=== PATIENT | male | born 1945 | race Caucasian/White ===

== ENCOUNTER 2016-10-18 14:51 | Emergency (ER) | payer OTHER ==
[~2016-10-18] VITALS: Ht 175.3 cm; Wt 83.9 kg
--- NOTE | ~2016-10-18 | EKG ---
[place] [address] [facility] [employer] [place] [address] ELECTROCARDIOGRAM REPORT Name: NORY HENDERSON [id number] Admission: 10/18/16 Attend Phys: Discharge: 10/18/16 Date of : 47 Report #: [id number] THIS REPORT FOR: //name// [facility] ED Test Date: 2016-10-18 Test Time: 15:41:24 Pat Name: NORY HENDERSON Department: Room: Gender: M Night Filler: Hernandez LO : 1945 Requested By: Joe García Order Number: [id number] MD: Josias Gamble Measurements Intervals [place] Rate: 80 P: 0 NM: 24 QRS: 198 QRSD: 143 T: 95 QT: 528 QTc: 610 Interpretive Statements Ventricular-paced rhythm No further analysis attempted due to paced rhythm No previous ECG available for comparison Electronically Signed On 10-19-2016 9:03:49 NON PROFIT JOB TITLES by Josias Gamble [email or web address] <ELECTRONICALLY SIGNED> By: Josias Gamble MD, [facility] 10/19/16 0903 1541 1541 Josias Gamble MD, FACC /EPI
[~2016-10-18 14:51] MED LIST: ACETAMINOPHEN325 M1 PO; ALDACTONE25 MG PO; ANTACID650 MG PO; ATORVASTATIN CA40 MG PO; BACTROBAN CREAM30 G1; BISACODYL SUPP10 MG RECTAL; CALCITRIOL0.25 MCG PO; CALCIUM ACETAT667 MG PO; CARDIZEM CD180 MG PO; CARRAKLENZ DER473 ML; CLONAZEPAM 0.50.5 M1 PO; COLACE100 MG PO; COMBIVENT INH; COUMADIN 2.5MG2.5 M1 PO; DEMADEX20 MG PO; DIGOXIN250 MCG PO; FOLIC ACID1 MG PO; GENTAMICIN 0.1%15 G2 TOP; IRON325 PO; KEFLEX500 MG PO; LANOXIN 0.120.125 M1 PO; LANTUS SUBQ; LANTUS100 UNIT/M SUBQ; LASIX 20 MG TAB20 MG PO; LASIX 40 MG TAB40 M2 PO; LISINOPRIL10 MG PO; LOPRESSOR50 PO; MIRALAX17 GM PO; MULTIVITAMIN PO; NEPHRO-VITE TA0.8 MG PO; NORVASC10 MG PO; NOVOLIN R100 UNIT/1 SUBQ; NOVOLOG100 UNIT/1 SQ; OMEPRAZOLE 20 M20 M1 PO; PAROXETINE HCL40 MG; PAROXETINE HCL40 MG PO; PAXIL40 MG PO; RENAL MULTIVITAMIN PO; TOPROL XL200 MG PO; TYLENOL325 MG PO; VITAMIN D31000 UNI2 PO; VITAMINC500 PO; ZOCOR 20 MG TAB20 M1 PO; ZOCOR40 MG PO; [UNRECOGNIZED DRUG - OTHER] PO
[2016-10-18 15:44] LABS: HEMATOCRIT 34.1 % (42.0-52.0); HEMOGLOBIN 11.6 gm/dL (14.0-18.0); MCH 31.9 pg (26.0-34.0); MCV 93.8 fL (80.0-100.0); PLATELET COUNT 125 thou/uL (150-400); RBC 3.64 mil/uL (4.50-6.00); WBC 6.9 thou/uL (4.0-11.0)
[2016-10-18 15:45] LABS: MANUAL DIFF YES
[2016-10-18 15:55] LABS: ANION GAP 13 mmol/L (7-16); BUN 79 mg/dL (7-18); CALCIUM 8.8 mg/dL (8.5-10.1); CHLORIDE 96 mmol/L (98-107); CO2 25 mmol/L (21-32); CREATININE 6.7 mg/dL (0.6-1.3); GLUCOSE 160 mg/dL (70-99); POTASSIUM 4.2 mmol/L (3.5-5.1); SODIUM 134 mmol/L (136-145)
[2016-10-18 16:00] LABS: ALBUMIN 3.6 g/dL (3.4-5.0); ALKALINE PHOSPHATASE 85 U/L (46-116); SGOT 18 U/L (15-37); SGPT 19 U/L (30-65); TOTAL BILIRUBIN 0.5 mg/dL (<0.1-1.0); TOTAL PROTEIN 8.5 g/dL (6.4-8.2); TROPONIN-I < 0.04 ng/mL (<0.04-0.07)
[2016-10-18 16:17] LABS: ANISOCYTOSIS 1+; TOTAL CELL COUNT 100
[2016-10-18 16:18] LABS: HYPOCHROMASIA SLIGHT; POIKILOCYTOSIS SLIGHT; POLYCHROMASIA OCCASIONAL
== END 2016-10-18 18:40 | disposition home or self-care (01) ==
LOC: ER 14:51
PROVIDERS: Physician Assistant
DX: I95.1 Orthostatic hypotension (principal); G47.39 Other sleep apnea; E78.5 Hyperlipidemia, unspecified; F32.9 Major depressive disorder, single episode, unspecified; F41.9 Anxiety disorder, unspecified; F43.10 Post-traumatic stress disorder, unspecified; E11.9 Type 2 diabetes mellitus without complications; M79.1 Myalgia; K21.9 Gastro-esophageal reflux disease without esophagitis; I48.91 Unspecified atrial fibrillation; I12.0 Hypertensive chronic kidney disease with stage 5 chronic kidney disease or end stage renal disease; N18.5 Chronic kidney disease, stage 5; Z99.2 Dependence on renal dialysis; Z88.8 Allergy status to other drugs, medicaments and biological substances; Z88.6 Allergy status to analgesic agent; Z88.1 Allergy status to other antibiotic agents; Z91.14 Patient's other noncompliance with medication regimen; Z90.89 Acquired absence of other organs; Z86.14 Personal history of Methicillin resistant Staphylococcus aureus infection

== ENCOUNTER 2017-03-16 15:45 | Emergency (ER) | payer OTHER ==
[~2017-03-16] VITALS: Ht 182.9 cm; Wt 88.5 kg
[2017-03-16 16:19] LABS: BASOPHILS 0.5 % (0.0-2.0); EOSINOPHILS 1.4 % (0.0-3.0); HEMATOCRIT 25.7 % (42.0-52.0); HEMOGLOBIN 8.8 gm/dL (14.0-18.0); LYMPHOCYTES 16.5 % (24.0-44.0); MCH 32.1 pg (26.0-34.0); MCHC 34.1 g/dL (28.0-37.0); MCV 94.3 fL (80.0-100.0); MONOCYTES 6.3 % (1.0-8.0); PLATELET COUNT 101 thou/uL (150-400); POLYS 75.3 % (36.0-66.0); RBC 2.73 mil/uL (4.50-6.00); RDW 14.3 % (10.5-14.5); WBC 3.9 thou/uL (4.0-11.0)
[2017-03-16 16:21] LABS: MANUAL DIFF NO
[2017-03-16 16:25] LABS: CALCIUM 8.5 mg/dL (8.5-10.1); CREATININE 4.6 mg/dL (0.7-1.3); POTASSIUM 4.5 mmol/L (3.5-5.1)
[2017-03-16 16:41] LABS: URINE BILIRUBIN NEGATIVE (Negative); URINE BLOOD TRACE (Negative); URINE COLOR YELLOW; URINE GLUCOSE-RANDOM* NEGATIVE (Negative); URINE KETONES NEGATIVE (Negative); URINE NITRITE NEGATIVE (Negative); URINE PROTEIN (DIPSTICK) 1+ (Negative); URINE UROBILINOGEN 0.2 E.U./dl (0.2-1.0)
[2017-03-16 17:04] LABS: CASTS None Seen /LPF (None Seen); SQUAMOUS >10 Many /LPF (0-3)
[2017-03-16 17:05] LABS: BACTERIA 1-9 Few /HPF (None Seen); CRYSTALS None Seen /LPF (None Seen); URINE RBC 0-2 Rare /HPF (0-2); URINE WBC 0-5 Rare /HPF (0-5)
== END 2017-03-16 17:52 | disposition home or self-care (01) ==
LOC: ER 15:45
PROVIDERS: Nurse Practitioner
DX: R25.1 Tremor, unspecified (principal); E78.5 Hyperlipidemia, unspecified; G47.30 Sleep apnea, unspecified; F32.9 Major depressive disorder, single episode, unspecified; F41.9 Anxiety disorder, unspecified; F43.10 Post-traumatic stress disorder, unspecified; M10.9 Gout, unspecified; I48.91 Unspecified atrial fibrillation; I12.0 Hypertensive chronic kidney disease with stage 5 chronic kidney disease or end stage renal disease; E11.22 Type 2 diabetes mellitus with diabetic chronic kidney disease; N18.5 Chronic kidney disease, stage 5; Z99.2 Dependence on renal dialysis; Z90.89 Acquired absence of other organs; Z86.14 Personal history of Methicillin resistant Staphylococcus aureus infection; Z79.4 Long term (current) use of insulin; Z88.8 Allergy status to other drugs, medicaments and biological substances

== ENCOUNTER 2019-06-04 11:03 | Inpatient (IN) | payer OTHER ==
[~2019-06-04] VITALS: Ht 182.9 cm; Wt 96.2 kg
[2019-06-04] VITALS (31 sets, daily range): BP systolic 107–155; BP diastolic 55–92
--- NOTE | ~2019-06-04 | HC ---
[facility] [place] [address] CONSULTATION Name: NORY HENDERSON Room #: 243-P ADM IN M.R.#: [id number] Admission: 06/04/19 ������������������ Attend Phys: Manohar Johnson MD Discharge: ������������������ Date of : 46 Report #: [id number] THIS REPORT FOR: //name// CC: Manohar Morgan HISTORY OF PRESENT ILLNESS: This is a 73-year-old gentleman with end-stage renal disease, on dialysis. Apparently, he was weak and he fell injuring his left wrist and hand as well as his knee and was then subsequently admitted through the Emergency Room here. ALLERGIES: Noted on the chart. PAST MEDICAL HISTORY: Significant for tonsillectomy, hypertension, previous left eye surgery, cardiac catheterization x 3, left ankle fracture, sleep apnea, hyperlipidemia, depression, history of MRSA, diabetes, gout, paroxysmal V-tach, AICD, atrial fibrillation with Coumadin, chronic kidney disease and had a history of prior toe amputation. X-rays of the left hand, there is an old chronic healed fracture of the proximal phalanx of the fifth digit as well as question of some cortical changes in the ulna, which I do not actually see. Physical exam has no tenderness over the proximal phalanx of the small finger. He does have tenderness, however, over his distal radius with ecchymosis noted there. IMPRESSION: Left wrist contusion and sprain. Plan will be to have the patient go into a volar wrist splint. His fracture is an old fracture, which is well healed on his proximal phalanx of his small finger. I will follow along with you. Thank you for allowing me to participate in the care of this pleasant patient. ��������������������������������������������� ���������������������������������������� By: ��������������������������������������������� 2041 0522 Pablito Mayberry MD /nt
[2019-06-04 11:30] LABS: ABSOLUTE NEUTROPHILS 4.3 thou/uL (1.4-8.2); BASOPHILS 1.1 % (0.0-2.0); EOSINOPHILS 1.1 % (0.0-3.0); HEMATOCRIT 32.6 % (42.0-52.0); HEMOGLOBIN 10.6 gm/dL (14.0-18.0); LYMPHOCYTES 12.3 % (24.0-44.0); MCH 32.4 pg (26.0-34.0); MCHC 32.5 g/dL (28.0-37.0); MCV 99.7 fL (80.0-100.0); MONOCYTES 6.7 % (1.0-8.0); POLYS 78.8 % (36.0-66.0); RBC 3.27 mil/uL (4.50-6.00); RDW 18.3 % (10.5-14.5); WBC 5.5 thou/uL (4.0-11.0)
[2019-06-04 11:47] LABS: INR 1.6; PROTIME 16.7 Seconds (9.3-11.4)
[2019-06-04 11:48] LABS: ALBUMIN 3.8 g/dL (3.4-5.0); ANION GAP 13 mmol/L (7-16); BUN 126 mg/dL (7-18); CHLORIDE 99 mmol/L (98-107); CO2 20 mmol/L (21-32); CREATININE 12.4 mg/dL (0.7-1.3); GLUCOSE 109 mg/dL (74-106); SGOT 35 U/L (15-37); SGPT 29 U/L (30-65); SODIUM 132 mmol/L (136-145); TOTAL BILIRUBIN 0.4 mg/dL (<0.1-1.0); TOTAL PROTEIN 7.5 g/dL (6.4-8.2); TROPONIN-I <0.06 ng/mL (<0.06)
[2019-06-04 11:50] LABS: ANISOCYTOSIS 1+; PLATELET COUNT 100 thou/uL (150-400); PLATELET ESTIMATE NORMAL
[2019-06-04 11:51] LABS: POTASSIUM 8.1 mmol/L (3.5-5.1)
[2019-06-04] MEDS ORDERED: COUMADIN 2.5MG2.5 M1 PO (12:41)
[2019-06-04] MEDS ORDERED: COUMADIN 5 MG TA5 M1 PO (12:42)
--- NOTE | 2019-06-04 13:20 | NUR ---
VASCULAR ACCESS TEAM CONSULTED FOR PICC LINE. PT IS ON DIALYSIS SO PICC IS CONTRAINDICATED. PT HAS R FISTULA AND LEFT PACEMEAKER SO CVAD IS ALSO CONTRAINDICATED SPOKE WITH MANUEL. RECOMMENDED TICC LINE FOR THIS PT.
--- NOTE | 2019-06-04 18:35 | NUR ---
CONTINUED HYPERKALEMIA MANAGEMENT. RENAL FOLLOWING. RT FEMORAL TEMP DIALYSIS CATHETER PLACED PER DR. LANDIN. EMMA AV FISTULA PATENT AT THIS TIME AND IN USE PER FLAG DECORATOR. VSS, SEE FLOWSHEET. VPACED ON TELEMETRY. DENIES SYMPTOMS OF CHEST PAIN OR SHORTNESS OF BREATH. LEFT WRIST FX WITHOUT IMMOBILIZATION. PVS INTACT. CONSIDER ORTHO INPUT. PATIENT ANURIC. +BM. CONTINUED PROGRESSION TOWARDS CURRENT PLAN OF CARE GOALS. NO ACUTE EVENTS TO REPORT.
--- NOTE | 2019-06-04 21:30 | NUR ---
ASSISTED DR. CARMONA WITH INFUSION OF MEDICATION IN RIGHT CHEST TUBE. CHEST TUBE CLAMP AT 2130. UNCLAMPED AT 2330, NEW ATRIUM ATTACHED TO CHEST TUBE. WILL CONTINUE TO MONITOR PT.
[2019-06-05] VITALS (20 sets, daily range): BP systolic 98–156; BP diastolic 41–79
--- NOTE | 2019-06-05 07:48 | EKG ---
[address] [employer] [place] [address] ELECTROCARDIOGRAM REPORT Name: NORY HENDERSON Room #: 243-P ADM IN M.R.#: [id number] ������������������ Admission: 06/04/19 ������������������ Attend Phys: Manohar Johnson MD Discharge: ������������������ Date of : 47 Report #: [id number] ����������������������������������������������������������������� [id number] THIS REPORT FOR: //name// [facility] ED Test Date: 2019-06-04 Test Time: 11:23:20 Pat Name: NORY HENDERSON Department: Room: 243 Gender: M [employer] Administrator: kf : 1945 Requested By: Joe García Order Number: [id number] MD: Josias Gamble Measurements Intervals [place] Rate: 80 P: 0 SD: 424 QRS: 153 QRSD: 162 T: 113 QT: 400 QTc: 462 Interpretive Statements Ventricular-paced rhythm No further analysis attempted due to paced rhythm Compared to ECG 10/18/2016 15:41:24 No significant changes Electronically Signed On 06-05-2019 7:47:54 CDT by Josias Gamble [email or web address] ��������������������������������������������� <ELECTRONICALLY SIGNED> ���������������������������������������� By: Josias Gamble MD, [facility] ��������������������������������������������� 06/05/19 0747 1123 1123 Josias Gamble MD, [facility] /EPI
--- NOTE | 2019-06-05 16:53 | NUR ---
ASSESSMENTS AND INTERVENTIONS DOCCUMENTED. PATIENT RECIEVED DIALYSIS THIS MORNING AND TOLERATED IT WELL. PATIENT WAS CONCERNED ABOUT PAIN CONTROL BUT PAIN WAS CONTROLLED THROUGH OUT SHIFT. PATIENT WAS COOPERATIVE AND WORKED WITH OT AND WAS TRANSFERED TO THE CHAIR. PATIENT BLEEDING FROM SCABS. PRESSURE HELD AND BLEEDING STOPPED AND COVERED WITH BANDAID AND COTTON BALL. PATIENT WORKED WITH PT AND TRANSFERED BACK INTO THE BED. PATIENT RESTING QUIETLY WITH NO ISSUES AT THIS TIME. WILL CONTINUE TO MONITOR. THE PLAN OF CARE IS TO MONITOR LABS AND MOBILITY.
[2019-06-06] VITALS (31 sets, daily range): BP systolic 105–136; BP diastolic 48–79
[2019-06-06 05:54] LABS: INR 1.7; PROTIME 18.2 Seconds (9.3-11.4)
[2019-06-06 07:09] LABS: HEPATITIS B SURFACE AG Negative (Negative)
[2019-06-06 10:05] LABS: CALCIUM 8.6 mg/dL (8.5-10.1)
[2019-06-06 10:06] LABS: CREATININE 5.1 mg/dL (0.7-1.3)
[2019-06-06 14:42] LABS: CALCIUM 8.6 mg/dL (8.5-10.1)
[2019-06-06 14:43] LABS: CREATININE 2.9 mg/dL (0.7-1.3); POTASSIUM 3.9 mmol/L (3.5-5.1)
--- NOTE | 2019-06-06 16:12 | NUR ---
FAXED REFERRAL TO [facility] SPOKE WITH ADM CIGAR PACKER SHE RECEIVED REFERRAL. DCP TO FOLLOW.
--- NOTE | 2019-06-06 16:28 | NUR ---
ASSESSMENTS AND INTERVENTIONS DOCCUMENTED. PATIENT ALERT AND ORIENTED X4. PATIENT RECIEVING DIALYSIS AND TOLERATING IT WELL. PATIENT TRANSFERED TO CHAIR FOR BREAKFAST. PATIENT ATE WELL. PATIENT EDUCATED ON PLAN OF CARE AND DISCHARGE RECCOMENDATIONS. PATIENT TALKED TO CONCAVING MACHINE OPERATOR ABOUT PLANS FOR DISCHARGE. PATIENT EXPRESSES UNDERSTANDING. THERE ARE NO CONCERNS AT THIS TIME. WILL CONTINUE TO MONITOR. THE PLAN OF CARE IS TO CONTINUE TO MONITOR AND CONFIRM DISCHARGE.
--- NOTE | 2019-06-06 16:54 | NUR ---
Chart reveiwed and case discussed with the care team. Pt had dialysis today. Therapy recommending snf due to weakness. Pt lives alone and has been having falls and unable to transfer and ambulate. Recommendations discussed with the pt at bedside as well as the [facility] assistant case manager. He agrees that he is to weak to go directly home. He dialyzes at [facility] and would be agreeable to a week or two of skilled rehab there under his medicare benefit. He is aware that he has service connected benefits thru the [facility] and they would pay for snf at one of their contracted facilities as well. He prefers [facility] due to his dialysis needs. Referral called to [facility] and they do have a bed available. Dc retail planner to fax referral for likely dc tomorrow. Care team updated. Pt's cm at the [facility] is Rhona Yanez [phone]. She indicates that the pt's pcp there is Dr. Gilbert at ext [phone]. The pt does have homemaker/hh benefits through a consult from his pcp if requested as well as hh benefits through his medicare part A. Pt updated on benefits and options. He is agreeable to dc to [facility] snf tomorrow if they can accept.
--- NOTE | 2019-06-06 23:00 | NUR ---
Pt remains in stable conditions. Left ER via w/c, accompanied by me to room 360. all belonging are sent with him. pt requested not to call his family regarding of transfering him to room 360 tonight. Will notify family in am.
--- NOTE | 2019-06-07 03:05 | NUR ---
PT TRANSFERED FROM ICU AROUND 2300. A&OX4. DENIES ANY PAIN. VERY PLEASANT AND COOPERATIVE. VSS. AFEBRILE. PT HAS BEEN SLEEPING MOST OF THE NIGHT. RESP EVEN AND UNLABORED. NO MAJOR COMPLAINTS DURING THE NIGHT. PROGRESSING TOWARD POC GOALS. WILL CONTINUE TO MONITOR FURTHER.
[2019-06-07 04:00] VITALS: BP 106/73
[2019-06-07 07:26] LABS: INR 1.8; PROTIME 18.4 Seconds (9.3-11.4)
[2019-06-07 08:44] VITALS: BP 94/53
--- NOTE | 2019-06-07 09:47 | HC ---
[facility] [place] [address] CONSULTATION Name: NORY HENDERSON Room #: 360-P [facility] IN M.R.#: [id number] Admission: 06/04/19 ������������������ Attend Phys: Manohar Johnson MD Discharge: ������������������ Date of : 47 Report #: [id number] THIS REPORT FOR: //name// CC: Manohar Bills Vogelsang DATE OF SERVICE: 06/04/2019 REASON FOR THE CONSULTATION: End-stage renal disease and hyperkalemia. REASON FOR THE PRESENTATION: Advised to come to the hospital because of failure of the dialysis, nurses to access his AV fistula. The patient was seen and examined on 06/04/2019. This is a late dictation. HISTORY OF PRESENT ILLNESS: This is a 73-year-old, who goes to dialysis at [facility]. Attempt to access his fistula on Tuesday failed. He was told yesterday to go to the ER because his potassium was extremely high. When I evaluated the patient in the Intensive Care Unit, his AV graft was working just fine. We dialyzed the patient emergently for his hyperkalemia yesterday. He is status post fall with a bruised right knee and angulated fracture deformity of the proximal phalanx of the fifth digit of unknown age. I was consulted to manage his end-stage renal disease. PAST MEDICAL HISTORY: 1. End-stage renal disease, maintained on hemodialysis every Tuesday, Tuesday and Tuesday. 2. Hypertension. 3. Hyperlipidemia. 4. Diabetes mellitus. 5. Post-AICD. 6. V-tach. 7. AFib. MEDICATIONS: 1. Paroxetine. 2. Warfarin. 3. Atorvastatin. 4. Calcium acetate. ALLERGIES: AMIODARONE, HALDOL, ZOSYN, ____. SOCIAL HISTORY: He denies drug or alcohol abuse. REVIEW OF SYSTEMS: GENERAL: Denies fever or chills. [facility] [address] [place] [address] CONSULTATION Name: NORY HENDERSON Room #: 360[facility] IN [facility].#: [id number] Admission: 06/04/19 ������������������ Attend Phys: Manohar Johnson MD Discharge: ������������������ Date of : 47 Report #: [id number] CARDIOVASCULAR: No chest pain or palpitation. PULMONARY: No cough or hemoptysis. GASTROINTESTINAL: No nausea or vomiting. MUSCULOSKELETAL: As per the history of present illness. LABORATORY VALUES: From yesterday revealed sodium of 132, potassium of 8.2, BUN of 126, creatinine is 12.4, INR was 1.6. PHYSICAL EXAMINATION: VITAL SIGNS: Blood pressure was 125/68. Pulse rate was 81. GENERAL: The patient was alert and oriented. HEAD AND NECK: No jugular venous distention. CHEST: No crackles. CARDIOVASCULAR: No rub. ABDOMEN: Soft, nontender. EXTREMITIES: Lower extremities, bruised knees bilaterally. Upper extremities, functioning AV graft. ASSESSMENT, IMPRESSION AND PLAN: 1. End-stage renal disease. 2. Hyperkalemia. 3. Post fall. 4. His arteriovenous graft has worked just fine with the dialysis yesterday. I am planning him for a second treatment today. 5. I will discontinue his femoral dialysis catheter. 6. Continue to address his other comorbid conditions. ��������������������������������������������� <ELECTRONICALLY SIGNED> ���������������������������������������� By: Azalia Arvizu MD ��������������������������������������������� 06/07/19 0947 0745 1047 Azalia Arvizu MD /nt
--- NOTE | 2019-06-07 10:45 | NUR ---
DISCHARGE NOTE: SW reviewed chart and spoke with nursing and attending physician. Pt was transferred to from ICU and is medically stable to discharge to [facility] today. Pt will resume his regular outpatient dialysis schedule tomorrow at [facility]. [place] does not have transportation available today and request transportation to be arranged for [phone] today. Awaiting final discharge orders/summary. exercise planner to fax orders/summary when available and coordinate transportation. JACKY left voice message for Jaclyn Melgoza at the [facility] ([phone]) to notify of pt's discharge. Chart copy requested. No additional SW needs identified at this time, but is available to assist should needs arise.
[2019-06-07 11:53] VITALS: BP 99/58
--- NOTE | 2019-06-07 13:47 | NUR ---
DISCHARGE ORDERS COMPLETED. PATIENT DISCHARGING TO [facility]. CHART COPY COMPLETED PER FACTORY HELPER. DISCHARGE ORDERS AND SUMMARY FAXED TO [facility]. VERIFIED ORDERS RECEIVED. [facility] TO TRANSPORT [id number] HOURS. UNIT RN NOTIFIED AND CONTACT NUMBER FOR REPORT PROVIDED. DISCHARGE ORDERS, DISCHARGE SUMMARY, H&P, AND DIALYSIS CLINICAL INFORMATION FAXED TO [facility]. CALL PLACED TO VERIFY ALL RECEIVED. NOONE AVAILABLE TO CONFIRM. FAX CONFIRMATION RECEIVED. UNIT SW AWARE.
--- NOTE | 2019-06-07 15:44 | NUR ---
PATIENT DISCHARGED AT THIS TIME GROUP HOME. HE IS ALERT ORIENTED X4. DENIES PAIN. RESPIRAITONS ARE NON LABORED. ASSISTED TO W/C VAN.
--- NOTE | 2019-06-08 14:05 | O ---
[facility] [place] [address] OPERATIVE REPORT Name: NORY HENDERSON Room #: 360-P [facility] IN M.R.#: [id number] Admission: 06/04/19 ������������������ Attend Phys: Manohar Johnson MD Discharge: 06/07/19 ������������������ Date of : 47 Report #: [id number] THIS REPORT FOR: //name// CC: Manohar Marcumng DATE OF SERVICE: 06/04/2019 PROCEDURE PERFORMED: Placement of right femoral dual lumen dialysis catheter with ultrasound guidance. PREOPERATIVE DIAGNOSES: 1. End-stage renal disease, on hemodialysis. 2. Malfunctioning right upper extremity arteriovenous fistula. 3. Severe hyperkalemia. 4. Atrial fibrillation, on Coumadin. POSTOPERATIVE DIAGNOSES: 1. End-stage renal disease, on hemodialysis. 2. Malfunctioning right upper extremity arteriovenous fistula. 3. Severe hyperkalemia. 4. Atrial fibrillation, on Coumadin. SURGEON: Dr. Mir. ANESTHESIA: 1% lidocaine. ASSISTANTS: None. ESTIMATED BLOOD LOSS: Less than 5 mL. URINE OUTPUT: Not measured. COMPLICATIONS: None. PROCEDURES: None. INDICATIONS FOR PROCEDURE: The patient is a very pleasant 73-year-old gentleman who was brought to the ER after falling earlier today. The patient was found to be severely hyperkalemic. He was unable to undergo hemodialysis during the previous two attempts due to the malfunctioning right upper extremity AV fistula per report. The risks, benefits and alternatives of the procedure were discussed with the patient. The risks discussed included but were not limited to risk of bleeding, infection, damage to any nearby anatomy, right lower extremity ischemia, [facility] [address] [place] [address] OPERATIVE REPORT Name: NORY HENDERSON Room #: 360-P [facility] IN ..#: [id number] Admission: 06/04/19 ������������������ Attend Phys: Manohar Johnson MD Discharge: 06/07/19 ������������������ Date of : 47 Report #: [id number] catheter infection requiring removal, catheter nonfunctioning, bacteremia and . The patient had the opportunity to ask questions. All questions were answered to the best of my ability. Alternatives discussed including no line and continued attempts to use of his AV fistula. At the end of the discussion, the patient did wish to proceed with surgery. DESCRIPTION OF PROCEDURE: After informed consent was obtained as above, the patient was placed in the supine position in the ICU bedroom. His right groin was prepped and draped in the usual sterile fashion and a timeout was performed. Ultrasound was used to identify the femoral vein on the right. The skin overlying this region was anesthetized with local anesthetic. A small skin kaleigh was made with an 11 blade scalpel. The femoral vein was accessed with a Cook needle. This took one attempt and was done without any difficulty. Guidewire was passed. Guidewire passed easily without any resistance. Cook needle was removed. Guidewire was left in place. The femoral vein was then dilated with serial dilatation while wiggling the guidewire to ensure that I did pass through the wall of the vein. Next, a temporary dialysis catheter was passed over the guidewire into the vein while wiggling the vein to ensure that the two did not get passed through the wall of the vein. The guidewire was removed and the catheter was left in place. Catheter was expelling dark nonpulsatile blood. Both ports were aspirated. Both ports aspirated dark nonpulsatile blood very easily. Both ports were flushed, they both flushed very easily. Both ports were heparinized with 1000 units per mL heparin saline solution. 1.4 mL of epinephrine and saline solution was used to lock each channel. Caps were placed. The catheter was secured to the skin in 3 separate locations using nylon suture. The right groin was hemostatic. There is no hematoma. Appropriate dressings were applied. The patient tolerated the procedure well. There were no adverse events throughout the course of the procedure. ��������������������������������������������� <ELECTRONICALLY SIGNED> ���������������������������������������� By: Michael Mir MD ��������������������������������������������� 06/08/19 1405 1715 1752 Michael Mir MD /nt
== END 2019-06-07 14:24 | DRG 314 ==
LOC: ER 11:03 → ICU 12:09 → EROBS 12:09 → ICU 14:26 → 3W 06-06 22:57
PROVIDERS: Hospitalist; Physician Assistant; ADMIT Internal Medicine
PROC: 06HY33Z Insertion of Infusion Device into Lower Vein, Percutaneous Approach (ICD-10-PCS; principal; 2019-06-04)
PROC: 5A1D70Z Performance of Urinary Filtration, Intermittent, Less than 6 Hours Per Day (ICD-10-PCS; principal; 2019-06-04)
PROC: B54BZZA Ultrasonography of Right Lower Extremity Veins, Guidance (ICD-10-PCS; principal; 2019-06-04)
PROC: 5A1D70Z Performance of Urinary Filtration, Intermittent, Less than 6 Hours Per Day (ICD-10-PCS; 2019-06-06)
DX: T82.590A Other mechanical complication of surgically created arteriovenous fistula, initial encounter (principal); N18.6 End stage renal disease; I47.2 Ventricular tachycardia; I12.0 Hypertensive chronic kidney disease with stage 5 chronic kidney disease or end stage renal disease; E87.5 Hyperkalemia; E78.5 Hyperlipidemia, unspecified; F32.9 Major depressive disorder, single episode, unspecified; M10.9 Gout, unspecified; I48.91 Unspecified atrial fibrillation; E11.22 Type 2 diabetes mellitus with diabetic chronic kidney disease; S60.212A Contusion of left wrist, initial encounter; S63.502A Unspecified sprain of left wrist, initial encounter; D63.8 Anemia in other chronic diseases classified elsewhere; Z79.01 Long term (current) use of anticoagulants; Y84.1 Kidney dialysis as the cause of abnormal reaction of the patient, or of later complication, without mention of misadventure at the time of the procedure; Z99.2 Dependence on renal dialysis; Z86.14 Personal history of Methicillin resistant Staphylococcus aureus infection; Z95.828 Presence of other vascular implants and grafts; Z88.8 Allergy status to other drugs, medicaments and biological substances; Z87.81 Personal history of (healed) traumatic fracture; Y92.89 Other specified places as the place of occurrence of the external cause; W18.39XA Other fall on same level, initial encounter; Y93.89 Activity, other specified; Y99.8 Other external cause status
CPT/HCPCS: 10078; 10204; 10779; 32100

== ENCOUNTER 2019-09-13 18:32 | Emergency (ER) | payer OTHER ==
[~2019-09-13] VITALS: Ht 182.9 cm; Wt 99.8 kg
[~2019-09-13 18:32] MED LIST changes: +COUMADIN 5 MG TA5 M1 PO
[2019-09-14 07:53] LABS: HEMATOCRIT 32.7 % (42.0-52.0); HEMOGLOBIN 10.3 gm/dL (14.0-18.0); MCH 31.4 pg (26.0-34.0); MCHC 31.3 g/dL (28.0-37.0); RBC 3.27 mil/uL (4.50-6.00); RDW 20.1 % (10.5-14.5); WBC 4.2 thou/uL (4.0-11.0)
[2019-09-14 08:04] LABS: PROTIME 20.4 Seconds (9.3-11.4)
[2019-09-14 12:34] VITALS: BP 122/57
== END 2019-09-14 12:34 | disposition home or self-care (01) ==
LOC: ER 18:32
PROVIDERS: Radiology Vascular & Interventional Radiology
DX: T82.590A Other mechanical complication of surgically created arteriovenous fistula, initial encounter (principal); I12.0 Hypertensive chronic kidney disease with stage 5 chronic kidney disease or end stage renal disease; E11.22 Type 2 diabetes mellitus with diabetic chronic kidney disease; N18.5 Chronic kidney disease, stage 5; M10.9 Gout, unspecified; I48.91 Unspecified atrial fibrillation; F32.9 Major depressive disorder, single episode, unspecified; Z88.8 Allergy status to other drugs, medicaments and biological substances; Y92.89 Other specified places as the place of occurrence of the external cause